=== PATIENT | female | born 1955 | race Caucasian/White ===

== ENCOUNTER 2022-12-18 00:16 | Emergency (ER) | payer MEDICARE ==
[2022-12-18] MEDS ORDERED: Ondansetron ODT 4 MG TAB ONE (00:41)
== END 2022-12-18 00:59 | disposition home or self-care (01) ==
LOC: MADERS 00:16
DX: T40.711A Poisoning by cannabis, accidental (unintentional), initial encounter (principal); R11.0 Nausea; E03.9 Hypothyroidism, unspecified; I10 Essential (primary) hypertension; Z79.899 Other long term (current) drug therapy
CPT/HCPCS: 99283; Q0162